=== PATIENT | male | born 1995 | race Caucasian/White ===

== ENCOUNTER 2020-12-06 10:08 | Emergency (ER) | payer OTHER, SELFPAY ==
--- NOTE | 2020-12-06 10:52 | RAD REPORT ---
EXAM DESCRIPTION: RAD - Shoulder Right 2 View - 12/06/2020 10:44 am CLINICAL HISTORY: Right shoulder pain FINDINGS: No fracture or dislocation is seen. Small subchondral cysts are suspected.
--- NOTE | 2020-12-06 10:53 | RAD REPORT ---
EXAM DESCRIPTION: RAD - Scapula Right - 12/06/2020 10:47 am CLINICAL HISTORY: Shoulder pain FINDINGS: No fracture is seen
--- NOTE | 2020-12-06 11:07 | ER ---
Nurse's Notes [facility] Name: Darrion Weems Age: 25 yrs Sex: Male : 1995 Arrival Date: 12/06/2020 Time: 10:10 Bed 5 Private MD: Diagnosis: Recurrent dislocation, right shoulder Presentation: 12/06 10:11 Chief complaint: Patient states: Fell off the ceiling 1 hr NOTCHED [employer] and dislocated R ca1 shoulder. Was able to put it back together on scene. Had previous R shoulder dislocations and surgery. Denies LOC. Denies hitting head. Coronavirus screen: Client denies travel out of the [place] in the last 14 days. At this time, the client does not indicate any symptoms associated with coronavirus-19. Ebola Screen: Patient negative for fever greater than or equal to 101.5 degrees Fahrenheit, and additional compatible Ebola Virus Disease symptoms Patient denies exposure to infectious person. Patient denies travel to an Ebola-affected area in the 21 days before illness onset. No symptoms or risks identified at this time. Initial Sepsis Screen: Does the patient meet any 2 criteria? No. Patient's initial sepsis screen is negative. Does the patient have a suspected source of infection? No. Patient's initial sepsis screen is negative. Risk Assessment: Do you want to hurt yourself or someone else? Patient reports no desire to harm self or others. Onset of symptoms was December 06, 2020. 10:11 Method Of Arrival: EMS: [facility] ca1 10:11 Acuity: [facility]IL[facility] 4 ca1 Historical: - Allergies: 10:15 No Known Allergies; ca1 - Home Meds: 10:15 None [Active]; ca1 - PMHx: 10:15 None; ca1 - PSHx: 10:15 Knee surgery; shoulder surgery R; ca1 - Immunization history:: Flu vaccine is up to date. - Social history:: Smoking status: Patient denies any tobacco usage or history of. - Family history:: not pertinent. - Hospitalizations: : No recent hospitalization is reported. Screenin:15 Abuse screen: Denies threats or abuse. Denies injuries from another. Nutritional ca1 screening: No deficits noted. Tuberculosis screening: No symptoms or risk factors identified. Fall Risk Fall in past 12 months (25 points). Assessment: 10:15 General: Appears in no apparent distress. comfortable, Behavior is calm, cooperative, ca1 appropriate for age. Pain: Denies pain. Complains of pain in anterior aspect of right shoulder and posterior aspect of right shoulder Pain currently is 6 out of 10 on a pain scale. Neuro: Level of Consciousness is awake, alert, obeys commands, Oriented to person, place, time, situation. Derm: Skin is intact, is healthy with good turgor, Skin is pink, warm \T\ dry. Musculoskeletal: Circulation, motion, and sensation intact. Capillary refill < 3 seconds, Range of motion: limited in right shoulder. 11:18 Reassessment: Patient appears in no apparent distress at this time. Patient is alert, ca1 oriented x 3, equal unlabored respirations, skin warm/dry/pink. Vital Signs: 10:11 BP 135 / 92; Pulse 80; Resp 17 S; Temp 97.8(TE); Pulse Ox 99% on R/A; Weight 111.13 kg ca1 (R); Height 6 ft. 0 in. (182.88 cm) (R); Pain 6/10; 11:18 BP 141 / 86; Pulse 76; Resp 16 S; Pulse Ox 99% on R/A; ca1 10:11 Body Mass Index 33.23 (111.13 kg, 182.88 cm) ca1 ED Course: 10:10 Patient arrived in ED. ca1 10:14 Triage completed. ca1 10:15 Al Yen MD is Attending Physician. rn 10:15 Arm band placed on right wrist. ca1 10:15 Patient has correct armband on for positive identification. Bed in low position. Call ca1 light in reach. Side rails up X 1. Pulse ox on. NIBP on. 10:15 No provider procedures requiring assistance completed. Patient did not have IV access ca1 during this emergency room visit. 10:27 Balbina Mack, RN is Primary Nurse. ca1 10:44 XRAY Shoulder RIGHT 2 view In Process Unspecified. EDMS 10:44 XRAY Scapula Right In Process Unspecified. EDMS 11:06 Solomon Umana MD is Referral Physician. rn 11:18 Sling applied to right arm. ca1 Administered Medications: No medications were administered Outcome: 11:06 Discharge ordered by . rn 11:18 Discharged to home ambulatory. ca1 11:18 Condition: stable 11:18 Discharge instructions given to patient, Instructed on discharge instructions, follow up and referral plans. Demonstrated understanding of instructions, follow-up care. 11:19 Patient left the ED. ca1 Signatures: Dispatcher [employer] EDAl Andrews MD MD rn AcobBalbina RN RN ca1
--- NOTE | 2020-12-06 11:07 | EDPHYS ---
Physician Documentation [facility] Name: Darrion Weems Age: 25 yrs Sex: Male : 1995 Arrival Date: 12/06/2020 Time: 10:10 Bed 5 Private MD: ED Physician Al Yen HPI: 12/06 10:16 This 25 yrs old Male presents to ER via EMS with complaints of Shoulder Pain. rn 10:16 The patient or guardian complains of decreased range of motion, an injury, pain. right rn shoulder. Onset: The symptoms/episode began/occurred just prior to arrival. Modifying factors: the symptoms are alleviated by remaining still, The symptoms are aggravated by movement, rotation of arm. Severity of symptoms: At their worst the symptoms were moderate, in the emergency department the symptoms have improved. The patient has experienced similar episodes in the past. The patient has not recently seen a physician. Reports injury to right shoulder, fell through ceiling, arm above head and tried to grab something, felt like dislocated right shoulder, has had numerous right shoulder dislocations, felt like popped back in when taking equipment off. Reports mild pain to right scapula region but attributes it to muscular pain. No other injuries. . Historical: - Allergies: 10:15 No Known Allergies; ca1 - Home Meds: 10:15 None [Active]; ca1 - PMHx: 10:15 None; ca1 - PSHx: 10:15 Knee surgery; shoulder surgery R; ca1 - Immunization history:: Flu vaccine is up to date. - Social history:: Smoking status: Patient denies any tobacco usage or history of. - Family history:: not pertinent. - Hospitalizations: : No recent hospitalization is reported. ROS: 10:16 Neck: Negative for injury, pain, and swelling, Back: Negative for injury and pain, rn MS/Extremity: + right shoulder pain and injury Skin: Negative for injury, rash, and discoloration, Neuro: Negative for weakness, numbness, tingling Exam: 10:16 Constitutional: This is a well developed, well nourished patient who is awake, alert, rn and in no acute distress. MS/ Extremity: Pulses equal, no cyanosis. Neurovascular intact. + painful and limited ROM of right shoulder, able to touch opposite shoulder with right hand, no bony tenderness of scapula, no clavicular tenderness or deformity. Vital Signs: 10:11 BP 135 / 92; Pulse 80; Resp 17 S; Temp 97.8(TE); Pulse Ox 99% on R/A; Weight 111.13 kg ca1 (R); Height 6 ft. 0 in. (182.88 cm) (R); Pain 6/10; 11:18 BP 141 / 86; Pulse 76; Resp 16 S; Pulse Ox 99% on R/A; ca1 10:11 Body Mass Index 33.23 (111.13 kg, 182.88 cm) ca1 MDM: 10:15 Patient medically screened. rn 11:04 Differential diagnosis: Anterior dislocation with fracture, Anterior dislocation rn without fracture, humeral head fracture, glenoid fracture, tendonitis. Data reviewed: vital signs, nurses notes, radiologic studies, plain films, and as a result, I will discharge patient. Counseling: I had a detailed discussion with the patient and/or guardian regarding: the historical points, exam findings, and any diagnostic results supporting the discharge/admit diagnosis, radiology results, the need for outpatient follow up, to return to the emergency department if symptoms worsen or persist or if there are any questions or concerns that arise at home. Special discussion: I discussed with the patient/guardian in detail that at this point there is no indication for admission to the hospital. It is understood, however, that if the symptoms persist or worsen the patient needs to return immediately for re-evaluation. Based on the history and exam findings, there is no indication for further emergent testing or inpatient evaluation. I discussed with the patient/guardian the need to see the orthopedic surgeon for further evaluation of the symptoms. ED course: Xray shoulder and scapula neg, likely injury to labrum, will dc home with ortho f/u, sling for now, patient declines prescription pain medication. . 12/06 10:16 Order name: XRAY Shoulder RIGHT 2 view; Complete Time: 11: rn 12/06 10:16 Order name: XRAY Scapula Right; Complete Time: 11: rn 12/06 10:16 Order name: Sling; Complete Time: 11:17 rn Administered Medications: No medications were administered Disposition: 12/06/20 11:06 Discharged to Home. Impression: Recurrent dislocation, right shoulder. - Condition is Stable. - Discharge Instructions: Shoulder Dislocation, How to Use a Sling. - Medication Reconciliation Form, Thank You Letter, Antibiotic Education, Prescription Opioid Use, Work release form form. - Follow up: Solomon Umana MD; When: As needed; Reason: Recheck today's complaints, Re-evaluation by your physician. - Problem is new. - Symptoms have improved. Signatures: Dispatcher [employer] EDMS Al Yen MD MD rn Acob, JOLENE Mortensen RN ca1 Corrections: (The following items were deleted from the chart) 11:19 11:06 12/06/2020 11:06 Discharged to Home. Impression: Recurrent dislocation, right ca1 shoulder. Condition is Stable. Forms are Medication Reconciliation Form, Thank You Letter, Antibiotic Education, Prescription Opioid Use. Follow up: Dr. Solomon Umana; When: As needed; Reason: Recheck today's complaints, Re-evaluation by your physician. Problem is new. Symptoms have improved. rn
[2020-12-06 11:25] VITALS: TEMP 97.8; O2SAT 99
[2020-12-06 11:26] VITALS: BP 141/86
== END 2020-12-06 11:19 | disposition home or self-care (01) ==
LOC: ER 10:08
DX: M24.411 Recurrent dislocation, right shoulder (principal); W17.89XA Other fall from one level to another, initial encounter; Y93.89 Activity, other specified; Y92.9 Unspecified place or not applicable
CPT/HCPCS: 73010; 99284